=== PATIENT | female | born 1985 | race Caucasian/White ===

== ENCOUNTER 2021-05-23 03:25 | Emergency (ER) | payer MEDICAID ==
[~2021-05-23] VITALS: Ht 160 cm; Wt 116.0 kg
[2021-05-23 03:41] VITALS: BP 162/102
[2021-05-23] MEDS ORDERED: KETOROLAC 60MG/2ML VIAL IM ONE (04:15)
[2021-05-23] MEDS ORDERED: NAPR-681 MT (05:26)
[2021-05-23] MEDS ORDERED: LIDO1ADH5 TP (05:26)
== END 2021-05-23 05:45 | disposition home or self-care (01) ==
LOC: ER 03:25
DX: M94.0 Chondrocostal junction syndrome [Tietze] (principal)
CPT/HCPCS: 71045; 81025; 93005; 96372; 99283; J1885

== ENCOUNTER 2022-10-14 22:33 | Emergency (ER) | payer MEDICAID, OTHER ==
[~2022-10-14] VITALS: Ht 160 cm; Wt 118.0 kg
[~2022-10-14 22:33] MED LIST: LIDO1ADH5 TP; NAPR-681 MT
[2022-10-14 22:41] VITALS: BP 156/76; O2SAT 99
[2022-10-15] MEDS ORDERED: KETOROLAC 60MG/2ML VIAL IM ONE (00:15)
[2022-10-15] MEDS ORDERED: IBUP-2028 MT (01:12)
[2022-10-15 01:23] VITALS: PULSE 90; RESP 18; TEMP 98.2
== END 2022-10-15 01:25 | disposition home or self-care (01) ==
LOC: ER 22:33
DX: M25.532 Pain in left wrist (principal); Z68.42 Body mass index [BMI] 45.0-49.9, adult; Z90.49 Acquired absence of other specified parts of digestive tract
CPT/HCPCS: 81025; 96372; 99283; 73110; J1885; Z7610

== ENCOUNTER 2023-05-15 12:10 | Emergency (ER) | payer MEDICAID, OTHER ==
[~2023-05-15] VITALS: Ht 165.1 cm; Wt 114.0 kg
[~2023-05-15 12:10] MED LIST changes: +IBUP-2028 MT
[2023-05-15 12:15] VITALS: O2SAT 98
[2023-05-15 13:01] LABS: BASOPHILS % 0.3 % (0.0-2.0); EOSINOPHILS % 1.1 % (0.0-5.0); HEMATOCRIT. 38.7 % (36.0-48.0); HEMOGLOBIN. 13.1 g/dL (12.0-16.0); LYMPHOCYTES % 32.9 % (20.0-50.0); MEAN CORPUSCULAR HEMOGLOBIN 31.2 pg (28.0-32.0); MEAN CORPUSCULAR HGB CONC 33.9 g/dL (31.0-37.0); MEAN PLATELET VOLUME 7.3 fl (7.4-10.4); MONOCYTES % 5.9 % (2.0-8.0); NEUTROPHILS % 59.8 % (40.0-76.0); PLATELET 354 x1000/uL (130-400); RED CELL DISTRIBUTION WIDTH 14.3 % (11.6-14.6); WHITE BLOOD COUNT 10.1 x1000/uL (4.5-11.0)
[2023-05-15 13:11] LABS: ALANINE AMINOTRANSFERASE 51 IU/L (10-49); ALBUMIN 4.3 g/dL (3.2-4.8); ASPARTATE AMINOTRANSFERASE 40 IU/L (<34); BILIRUBIN TOTAL 0.3 mg/dL (0.1-1.0); CALCIUM 9.3 mg/dL (8.7-10.4); CARBON DIOXIDE 27 mEq/L (21-32); CHLORIDE 104 mEq/L (98-107); CREATININE 0.5 mg/dL (0.6-1.0); GLUCOSE 127 mg/dL (70-105); POTASSIUM 4.1 mEq/L (3.5-5.1); PROTEIN TOTAL 8.4 g/dL (6.0-8.3); SODIUM 136 mEq/L (136-145); UREA NITROGEN BLOOD 8 mg/dL (9-23)
[2023-05-15 13:21] LABS: HCG SCREEN NEGATIVE
[2023-05-15 13:27] LABS: TROPONIN I HIGH SENSITIVITY < 4 ng/L (3.0-34)
[2023-05-15 13:48] LABS: T4 FREE 1.15 ng/dL (0.89-1.76); THYROID STIMULATING HORMONE 2.35 uIU/mL (0.55-4.78)
[2023-05-15 14:34] LABS: CLARITY URINE CLEAR (CLEAR); COLOR URINE YELLOW (YELLOW); PH URINE 6.5 (4.5-8.0); SPECIFIC GRAVITY URINE 1.015 (1.005-1.030)
[2023-05-15 14:35] LABS: GLUCOSE URINE NEGATIVE (NEGATIVE); KETONES URINE NEGATIVE (NEGATIVE); LEUKOCYTE ESTERASE URINE NEGATIVE (NEGATIVE); NITRITE URINE NEGATIVE (NEGATIVE); OCCULT BLOOD URINE NEGATIVE (NEGATIVE); PROTEIN URINE NEGATIVE (NEGATIVE); UROBILINOGEN URINE 0.2 E.U./dL (0.2-1.0)
[2023-05-15 14:51] VITALS: BP 155/98; PULSE 98; RESP 16; TEMP 98.6
== END 2023-05-15 14:53 | disposition home or self-care (01) ==
LOC: ER 12:10
DX: R00.2 Palpitations (principal); R20.2 Paresthesia of skin; Z98.890 Other specified postprocedural states; Z90.49 Acquired absence of other specified parts of digestive tract
CPT/HCPCS: 36415; 71045; 80053; 81003; 81025; 82962; 84439; 84443; 84484; 84703; 85025; 85379; 93005; 99285

== ENCOUNTER 2025-03-28 01:02 | Emergency (ER) | payer MEDICAID ==
[~2025-03-28] VITALS: Ht 162.6 cm; Wt 60.0 kg
[2025-03-28 01:08] VITALS: O2SAT 100
[2025-03-28 02:23] LABS: BASOPHILS % 0.4 % (0.0-2.0); EOSINOPHILS % 1.4 % (0.0-5.0); HEMATOCRIT. 38.8 % (36.0-48.0); HEMOGLOBIN. 12.7 g/dL (12.0-16.0); LYMPHOCYTES % 40.0 % (20.0-50.0); MEAN PLATELET VOLUME 7.8 fl (7.4-10.4); MONOCYTES % 7.5 % (2.0-8.0); NEUTROPHILS % 50.7 % (40.0-76.0); PLATELET 301 x1000/uL (130-400); RED BLOOD CELL COUNT 4.24 mill/uL (4.2-5.4); RED CELL DISTRIBUTION WIDTH 14.3 % (11.6-14.6)
[2025-03-28 02:34] LABS: CREATININE 0.7 mg/dL (0.6-1.0); UREA NITROGEN BLOOD 7 mg/dL (9-23)
[2025-03-28 02:36] LABS: TROPONIN I HIGH SENSITIVITY < 4 ng/L (3.0-34)
[2025-03-28] MEDS ORDERED: LIDO-53 TP (03:53)
[2025-03-28 04:20] VITALS: BP 147/75; PULSE 70; RESP 16; TEMP 36.6; O2SAT 100
[2025-03-28] MEDS: KETOROLAC 30MG/ML VIAL IM ONE (04:20)
[2025-03-28 05:23] LABS: HCG SCREEN NEGATIVE
== END 2025-03-28 04:21 | disposition home or self-care (01) ==
LOC: ER 01:02
DX: R07.89 Other chest pain (principal); I10 Essential (primary) hypertension; F41.9 Anxiety disorder, unspecified; Z79.899 Other long term (current) drug therapy
CPT/HCPCS: 99284; 80048; 84703; 85025; 84484; 36415; 93005; 96372; J1885; A4565